=== PATIENT | female | born 1965 | race Two or more races ===

== ENCOUNTER 2018-11-13 06:30 | Day surgery (SDC) | payer OTHER ==
[~2018-11-13 06:30] MED LIST: ATIVAN1 M1; BUPROPION XL150 MG PO; LEVO-T50 MCG PO; RESTORIL7.5 MG; ZANTAC150 M3 PO
[2018-11-13] MEDS ORDERED: NAPROXEN SODIU550 M1 PO (14:25)
== END 2018-11-13 16:45 | disposition home or self-care (01) ==
LOC: CIR.AMB 06:30 → EDBD 09:00 → CIR.AMB 09:00
DX: N84.0 Polyp of corpus uteri (principal); N99.72 Accidental puncture and laceration of a genitourinary system organ or structure during other procedure